=== PATIENT | female | born 2005 | race Caucasian/White ===

== ENCOUNTER 2024-04-12 14:34 | Emergency (ER) | payer MEDICAID, OTHER ==
[~2024-04-12] VITALS: Ht 157.5 cm; Wt 50.8 kg
[~2024-04-12 14:34] MED LIST: NO HOME MEDS
[2024-04-12 14:50] VITALS: BP 110/61; PULSE 88; RESP 16; O2SAT 98
[2024-04-12] MEDS: LIDOcaine 1% W/epiNEPHrine 1:100,000 20ml vial SQ ONE (15:37)
[2024-04-12 16:43] VITALS: TEMP 97.3
== END 2024-04-12 16:44 | disposition home or self-care (01) ==
LOC: ER 14:34
DX: S01.01XA Laceration without foreign body of scalp, initial encounter (principal); W22.03XA Walked into furniture, initial encounter; Y93.89 Activity, other specified; Y92.89 Other specified places as the place of occurrence of the external cause; Y99.8 Other external cause status
CPT/HCPCS: 12001; 99282